=== PATIENT | female | born 1975 | race Two or more races ===

== ENCOUNTER 2024-03-10 08:50 | Day surgery (SDC) | payer BC, OTHER ==
[2024-03-06 11:38] VITALS: BMI 33.8
[2024-03-10] MEDS ORDERED: PROPOFOL 160 ML ONE (09:55)
[2024-03-10 12:30] VITALS: TEMP 97.7
[2024-03-10 12:35] VITALS: BP 100/65
[2024-03-10 12:52] VITALS: PULSE 66; RESP 17
== END 2024-03-10 11:05 | disposition home or self-care (01) ==
LOC: FASU-ENDO 08:50
PROVIDERS: ATTEND Internal Medicine Gastroenterology
PROC: 0DJD8ZZ Inspection of Lower Intestinal Tract, Via Natural or Artificial Opening Endoscopic (ICD-10-PCS; principal; 2024-03-10 09:54)
DX: Z12.11 Encounter for screening for malignant neoplasm of colon (principal); K57.30 Diverticulosis of large intestine without perforation or abscess without bleeding
CPT/HCPCS: 81025